=== PATIENT | male | born 1970 | race Caucasian/White ===

== ENCOUNTER → 2016-12-28 09:46 | Outpatient (CLI) | payer MEDICAID | END | disposition home or self-care (01) | LOC: D.US 09:46 | DX: R10.11 Right upper quadrant pain (principal) ==

== ENCOUNTER → 2017-01-03 08:18 | Outpatient (CLI) | payer MEDICAID | END | disposition home or self-care (01) | LOC: D.US 08:18 | DX: R10.11 Right upper quadrant pain (principal) ==